=== PATIENT | female | born 1950 | race Asian ===

== ENCOUNTER → 2018-10-02 | Outpatient (CLI) | payer MEDICARE, BC ==
--- NOTE | 2018-10-02 14:23 | Diagnostic Imaging Report ---
Exam: Head CT without contrast History: Dizziness, giddiness, fall on September 27. Comparison studies: None Technique: Axial images were obtained from the skull base to the vertex. Coronal and sagittal images reconstructed from the axial data. Dose modulation, iterative reconstruction, and/or weight based adjustment of the mA/kV was utilized to reduce the radiation dose to as low as reasonably achievable. Radiation dose: Total DLP: 921 mGy*cm. Estimated effective dose: DLP x 0.015 Intravenous contrast: None Findings: Scalp: No abnormalities. Bones: No fractures, blastic or lytic lesions. Brain sulci: Appropriate for age. Ventricles: Normal in size and configuration. No hydrocephalus. Extra-axial spaces: No masses, no fluid collection. Parenchyma: No mass, acute hemorrhage or acute or chronic cortical insults. A few hypodensities which are mildly confluent in the bilateral frontal-insular white matter are nonspecific most compatible with chronic microvascular ischemic changes. Bilateral globus pallidus calcifications are most likely age-related and physiologic. Moreover, similar findings can also be seen in patients with underlying metabolic synovitis, most common does which involve calcium metabolism. Sellar/suprasellar region: No abnormalities. Craniocervical junction: Patent foramen magnum. No Chiari one malformation. Incidental findings: Atherosclerotic calcifications in the carotid siphons and left intradural vertebral artery. IMPRESSION: 1. No acute intracranial abnormalities. 2. Mild chronic microvascular ischemic changes. 3. Incidental nonspecific globus pallidus calcifications. Signed by: Dr. Baldo Vera M.D. on 10/02/2018 2:20 PM
--- NOTE | 2018-10-02 16:17 | Diagnostic Imaging Report ---
EXAM: RIBS UNILAT W/CXR, PA and lateral DATE: 10/02/2018 Time stamp on exam: 1:14 PM INDICATION: Status post fall COMPARISON: None FINDINGS: LINES/TUBES: There are sternotomy wire sutures. LUNGS: No consolidations or edema. Scarring in the right apex. PLEURA: No effusions or pneumothorax. HEART AND MEDIASTINUM: The heart is enlarged. Coronary artery stents. Vascular calcification. BONES AND SOFT TISSUES: No acute findings. No obvious rib fracture. IMPRESSION: Cardiomegaly without evidence of decompensation. Signed by: Dr. Gene Zepeda DO on 10/02/2018 4:14 PM
== END ==
LOC: CT 13:03
PROVIDERS: ATTEND Family Medicine
DX: S20.219A Contusion of unspecified front wall of thorax, initial encounter (principal); R42 Dizziness and giddiness
CPT/HCPCS: 70450; 71101